=== PATIENT | male | born 1990 | race American Indian/Alaskan Native ===

== ENCOUNTER 2020-03-10 17:50 | Emergency (ER) | payer SELFPAY ==
[2020-03-10 18:09] VITALS: BP 136/86
[2020-03-10 18:40] LABS: Basophils # (Auto) 0.1 K/mm3 (0.0-0.1); Basophils % (Auto) 0.6 % (0.0-1.8); Eosinophils # (Auto) 0.2 K/mm3 (0.0-0.4); Eosinophils % (Auto) 1.8 % (0.0-4.3); Hematocrit 45.6 % (35.5-45.6); Hemoglobin 15.4 gm/dl (11.8-15.2); Lymphocytes # (Auto) 1.4 K/mm3 (1.2-5.4); Lymphocytes % (Auto) 14.4 % (13.4-35.0); Mean Corpuscular HGB Conc 34 % (32-34); Mean Corpuscular Volume 83 fl (84-94); Monocytes # (Auto) 0.5 K/mm3 (0.0-0.8); Monocytes % (Auto) 5.8 % (0.0-7.3); Platelet Count 219 K/mm3 (140-440); Red Cell Distribution Width 13.5 % (13.2-15.2)
[2020-03-10 18:51] LABS: Alanine Aminotransferase 15 units/L (7-56); Albumin 4.8 g/dL (3.9-5); BUN/Creatinine Ratio 13; Blood Urea Nitrogen 15 mg/dL (9-20); Calcium 9.9 mg/dL (8.4-10.2); Hemolysis Index 9
[2020-03-10] MEDS ORDERED: ONDANSETRON 4 MG/2 ML INJ IV STA (20:34)
[2020-03-10] MEDS ORDERED: KETOROLAC 30 MG/1 ML INJ IV STA (20:34)
[2020-03-10] MEDS ORDERED: SODIUM CHLORIDE 0.9% 1000 ML 1,000 ML IV ONE (20:34)
--- NOTE | 2020-03-10 20:39 | Emergency Department Report ---
ED Abdominal Pain HPI - General Chief Complaint: Abdominal Pain Stated Complaint: ABD PAIN Time Seen by Provider: 03/10/20 19:44 Source: patient Mode of arrival: Wheelchair Limitations: No Limitations - History of Present Illness Initial Comments: 21-year-old [place] male to the emergency department complaining of a 3-day history of lower abdominal pain associated with 1 episode of vomiting and some nausea and variable stools. Started from an unknown etiology pain is sharp and burning when present and worse with palpation range of motion and when tries to eat he becomes more nauseous and develops more pain. Reports no hemoptysis no hematemesis no hematochezia. No no fevers, chills, sweats. Reports no chest pain or palpitations. Reports no pre-existing gastrointestinal issues. MD Complaint: abdominal pain Location: LLQ, RLQ Radiation: none Migration to: no migration Severity scale (0 -10): 10 Quality: aching, burning Consistency: constant Improves With: nothing Worsens With: eating Associated Symptoms: denies: melena, anorexia, syncope - Related Data Previous Rx's Medication Instructions Recorded Last Taken Type Hyoscyamine Subl [Levsin Sl 0.125 0.125 mg SL Q4HR PRN #20 tablet 03/11/20 Unknown Rx TAB] Ondansetron [Zofran Odt] 4 mg PO Q8HR #10 tab.rapdis 03/11/20 Unknown Rx Allergies Allergy/AdvReac Type Severity Reaction Status Date / Time No Known Allergies Allergy Verified 08/21/15 01:14 ED Review of Systems ROS: Stated complaint: ABD PAIN Other details as noted in HPI Comment: All other systems reviewed and negative ED Past Medical Hx - Past Medical History Previous Medical History?: No - Surgical History Past Surgical History?: No - Social History Smoking Status: Never Smoker Substance Use Type: None - Medications Home Medications: Home Medications Medication Instructions Recorded Confirmed Last Taken Type Hyoscyamine Subl [Levsin Sl 0.125 0.125 mg SL Q4HR PRN #20 tablet 03/11/20 Unknown Rx TAB] Ondansetron [Zofran Odt] 4 mg PO Q8HR #10 tab.rapdis 03/11/20 Unknown Rx ED Physical Exam - General Limitations: No Limitations General appearance: alert, in no apparent distress - Head Head exam: Present: atraumatic, normocephalic - Eye Eye exam: Present: normal appearance, PERRL, EOMI - ENT ENT exam: Present: mucous membranes moist - Neck Neck exam: Present: normal inspection - Respiratory Respiratory exam: Present: normal lung sounds bilaterally. Absent: respiratory distress - Cardiovascular Cardiovascular Exam: Present: regular rate, normal rhythm. Absent: systolic murmur, diastolic murmur, rubs, gallop - GI/Abdominal GI/Abdominal exam: Present: soft, tenderness, normal bowel sounds, other (Te nderness at [employer] is noted. Note no Young sign. No [place] sign, no Rovsing, no [place],). Absent: guarding, rebound, hyperactive bowel sounds, hypoactive bowel sounds - Rectal Rectal exam: Present: deferred - Extremities Exam Extremities exam: Present: normal inspection - Back Exam Back exam: Present: normal inspection - Neurological Exam Neurological exam: Present: alert, oriented X3 - Psychiatric Psychiatric exam: Present: normal affect, normal mood - Skin Skin exam: Present: warm, dry, intact, normal color. Absent: rash ED Course Vital Signs 03/10/20 03/10/20 18:08 21:52 Temperature 98.5 F Pulse Rate 106 H 101 H Respiratory 22 Rate Blood Pressure 136/86 [Right] O2 Sat by Pulse 100 Oximetry ED Medical Decision Making - Lab Data Result diagrams: 03/10/20 18:17 03/10/20 18:17 - Radiology Data Radiology results: report reviewed [facility] [address] [place] [address] Cat Scan Report Signed Patient: JAYESH MCGUIRE MR#: [id number] : 1990 Acct:[id number] Age/Sex: 29 / M ADM Date: 03/10/20 Loc: ED Attending Dr: Ordering Physician: MUKESH TUCKER Date of Service: 03/10/20 Procedure(s): CT abdomen pelvis w con Accession Number(s): [id number] cc: MUKESH TUCKER CT abdomen pelvis w con INDICATION: Patine complains of LEFT lower abd pain with N/V x 3 days.. TECHNIQUE: All CT scans at this location are performed using the following dose modulation technique: Automated exposure control. Helical slices were obtained through the abdomen and pelvis. 100 cc of Omnipaque 300 is administered. COMPARISON: None available. FINDINGS: Abdomen: Lung bases are clear. Liver, spleen, pancreas, adrenal glands, and kidneys show no acute abnormality. The aorta is normal in diameter. There is no obstruction, inflammation, or free air. There are no abnormal fluid collections. The aorta is normal in diameter. Pelvis: The appendix is unremarkable. There is no obstruction, inflammation, or free air. There are no abnormal fluid collections. There is no adenopathy. On review of bone windows, no acute osseous abnormalities are seen. IMPRESSION: 1. There is no obstruction, inflammation, or free air. There are no abnormal fluid collections. No acute abnormality is seen in the abdomen or pelvis. Signer Name: Supa Penaloza MD Signed: 03/10/2020 11:37 PM Workstation Name: [id number] Transcribed By: Dictated By: Supa Penaloza MD Electronically Authenticated By: Supa Penaloza MD Signed Date/Time: 03/10/202336 DD/ 30 TD/TT: - Medical Decision Making This patient presents with abdominal pain of unclear etiology. A CT scan was performed to evaluate for potential causes of the abdominal pain, however, neither the clinical exam nor the CT has identified an emergent etiology for the abdominal pain. Specifically, given the benign exam, the laboratory studies, and unremarkable CT, I have a very low suspicion for appendicitis, ischemic bowel, bowel perforation, or any other life threatening disease. I have discussed with the patient the level of uncertainty with undifferentiated abdominal pain and clearly explained the need to follow-up as noted on the discharge instructions, or return to the Emergency Department immediately if the pain worsens, develops fever, persistent and uncontrollable vomiting, or for any new symptoms or concerns. Critical care attestation.: If time is entered above; I have spent that time in minutes in the direct care of this critically ill patient, excluding procedure time. ED Disposition Clinical Impression: Abdominal pain Disposition: DC-01 TO HOME OR SELFCARE Is pt being admited?: No Does the pt Need Aspirin: No Condition: Stable Instructions: Abdominal Pain (ED), Acute Abdominal Pain (ED) Prescriptions: Hyoscyamine Subl [Levsin Sl 0.125 TAB] 0.125 mg SL Q4HR PRN #20 tablet PRN Reason: Spasms Ondansetron [Zofran Odt] 4 mg PO Q8HR #10 tab.rapdis Referrals: PRIMARY CARE, [Primary Care Provider] - 3-5 Days [facility] [Provider Group] - 24 Hours
[2020-03-10 20:45] LABS: Bilirubin,Urine NEG (Negative); Blood,Urine NEG (Negative); Color,Urine Amber (Yellow); Mucus,Urine 2+ /HPF
[2020-03-10 20:46] LABS: RBC,Urine < 1.0 /HPF (0.0-6.0)
--- NOTE | 2020-03-10 23:41 | Cat Scan Report ---
CT abdomen pelvis w con INDICATION: Patine complains of LEFT lower abd pain with N/V x 3 days.. TECHNIQUE: All CT scans at this location are performed using the following dose modulation technique: Automated exposure control. Helical slices were obtained through the abdomen and pelvis. 100 cc of Omnipaque 30 0 is administered. COMPARISON: None available. FINDINGS: Abdomen: Lung bases are clear. Liver, spleen, pancreas, adrenal glands, and kidneys show no acute abn ormality. The aorta is normal in diameter. There is no obstruction, inflammation, or free air. There are no abnormal fluid collections. The aorta is normal in diameter. Pelvis: The appendix is unremarkable. There is no obstruction, inflammation, or free air. There are n o abnormal fluid collections. There is no adenopathy. On review of bone windows, no acute osseous abnormalities are seen. IMPRESSION: 1. There is no obstruction, inflammation, or free air. There are no abnormal fluid collections. No ac [place] abnormality is seen in the abdomen or pelvis. Signer Name: Supa Penaloza MD Signed: 03/10/2020 11:37 PM Workstation Name: [id number]
== END 2020-03-11 01:20 | disposition home or self-care (01) ==
LOC: ED 17:50
DX: R10.30 Lower abdominal pain, unspecified (principal); Z79.899 Other long term (current) drug therapy
CPT/HCPCS: 36415; 74177; 80053; 81001; 85025; 96361; 96374; 96375; 99284; J1885; J2405; J7030; Q9967

== ENCOUNTER 2020-12-19 06:51 | Emergency (ER) | payer SELFPAY ==
[2020-12-19 07:59] VITALS: BP 123/70
--- NOTE | 2020-12-19 08:07 | Event Note ---
ED Screening Note Date of service: 12/19/20 Time: 08:06 ED Screening Note: 30-year-old -[place] male presents to the emergency room for intermittent abdominal pain with a history of constipation for 1 week. Patient states that he seen blood from his rectum. This initial assessment/diagnostic orders/clinical plan/treatment(s) is/are subject to change based on patients health status, clinical progression and re- assessment by fellow clinical providers in the ED. Further treatment and workup at subsequent clinical providers discretion. Patient/guardian urged not to elope from the ED as their condition may be serious if not clinically assessed and managed. Initial orders include: CBC CMP
[2020-12-19 09:24] LABS: Basophils # (Auto) 0.1 K/mm3 (0.0-0.1); Basophils % (Auto) 1.1 % (0.0-1.8); Eosinophils # (Auto) 0.3 K/mm3 (0.0-0.4); Eosinophils % (Auto) 4.9 % (0.0-4.3); Hematocrit 40.5 % (35.5-45.6); Hemoglobin 13.4 gm/dl (11.8-15.2); Lymphocytes # (Auto) 1.5 K/mm3 (1.2-5.4); Lymphocytes % (Auto) 24.7 % (13.4-35.0); Mean Corpuscular HGB Conc 33 % (32-34); Mean Corpuscular Volume 85 fl (84-94); Monocytes # (Auto) 0.5 K/mm3 (0.0-0.8); Monocytes % (Auto) 7.6 % (0.0-7.3); Platelet Count 210 K/mm3 (140-440); Red Blood Count 4.78 M/mm3 (3.65-5.03); Red Cell Distribution Width 13.9 % (13.2-15.2)
[2020-12-19 09:48] LABS: Alanine Aminotransferase 22 units/L (7-56); Albumin 4.9 g/dL (3.9-5); BUN/Creatinine Ratio 10; Blood Urea Nitrogen 11 mg/dL (9-20); Calcium 9.8 mg/dL (8.4-10.2); Hemolysis Index 8
[2020-12-19 09:58] LABS: Bilirubin,Urine NEG (Negative); Blood,Urine SM (Negative); Color,Urine Yellow (Yellow); Mucus,Urine 3+ /HPF
== END 2020-12-20 05:03 ==
LOC: ED 06:51
DX: R10.9 Unspecified abdominal pain (principal); Z53.21 Procedure and treatment not carried out due to patient leaving prior to being seen by health care provider
CPT/HCPCS: 36415; 80053; 81001; 85025